=== PATIENT | female | born 1955 | race Caucasian/White ===

== ENCOUNTER 2018-05-04 03:36 | Inpatient (IN) | payer BC ==
[2018-05-04] MEDS ORDERED: Aspirin 81 mg Enteric Coated Tablet ONE (03:55)
[2018-05-04 04:09] LABS: #Basophils 0.1 thou/uL (0.0-0.2); #Eosinphils 0.2 thou/uL (0.0-0.7); #Lymphocytes 2.7 thou/uL (1.20-3.40); #Monocytes 0.5 thou/uL (0.11-0.59); #Neutrophils 5.8 thou/uL (1.40-6.50); %Basophils 0.9 % (0.0-1.0); %Eosinophils 2.3 % (0.0-10.0); %Lymphocytes 28.9 % (21.0-51.0); %Monocytes 5.3 % (0.0-10.0); %Neutrophils 62.6 % (42.0-75.0); Hemoglobin 11.6 g/dL (12.0-16.0); Mean Corpuscular HGB CONC 31.7 g/dL (32.0-36.0); Mean Corpuscular Hemoglobin 25.4 pg (27.0-31.0); Mean Corpuscular Volume 80.1 fL (78.0-98.0); Mean Platelet Volume 8.2 fL (7.4-10.4); Platelet Count 293 thou/uL (130-400); RBC Distribution Width 13.8 % (11.5-14.5); Red Blood Cell (RBC) Count 4.56 mill/uL (4.20-5.40); White Blood Cell (WBC) Count 9.2 thou/uL (4.8-10.8)
[2018-05-04] MEDS ORDERED: Magnesium 2 GM/NS 0.9% 50 ML 2 GM in Premix Bag 1 BAG IVPB SCH (04:15)
[2018-05-04 04:19] LABS: ALT (SGPT) 33 U/L (8-55); AST (SGOT) 42 U/L (5-34); Albumin 3.9 g/dL (3.4-4.8); Alkaline Phosphatase 77 U/L (40-150); Anion Gap 14 mmol/L (10-20); BUN (Urea Nitrogen) 18 mg/dL (9.8-20.1); Bilirubin, Total Less than 0.2 mg/dL (0.2-1.2); CK (CPK) 56 U/L (29-168); Calc. Creatinine Clearance 0 mL/min (70-130); Calcium 9.2 mg/dL (7.8-10.44); Carbon Dioxide 23 mmol/L (23-31); Chloride 102 mmol/L (98-107); Estimated GFR-MDRD 74; Globulin 2.6 g/dL (2.4-3.5); Glucose 152 mg/dL (80-115); Lipase 8 U/L (8-78); Potassium 3.8 mmol/L (3.5-5.1); Protein, Total 6.5 g/dL (6.0-8.3); Sodium 135 mmol/L (136-145)
[2018-05-04 04:23] LABS: CKMB 1.8 ng/mL (0-6.6); Troponin I Less than 0.010 ng/mL (< 0.028)
[2018-05-04 05:42] LABS: Bilirubin Negative (Negative); Blood, Urine Negative (Negative); Clarity CLEAR (Clear); Glucose, Urine (Dipstick) Negative (Negative); Leukocyte Small (Negative); Nitrite Negative (Negative); Protein, Urine (Dipstick) Negative (Neg-Trace); Specific Gravity, Urine 1.003 (1.002-1.036); Urobilinogen 0.2 mg/dL (0.2-1.0); pH, Urine 6.5 (5.0-9.0)
[2018-05-04 05:44] LABS: Bacteria/HPF 3+ HPF (None Seen); Hyaline Casts/LPF 0-3 HYALINE CAST LPF (0-3 Hyaline); Pathc Cast-AUWi Flag 0.43 (0-2.49); RBC/HPF None Seen HPF (0-3); Squamous Epithelial 0-3 HPF (0-3)
[2018-05-04] MEDS ORDERED: Ondansetron HCl/PF 4 MG/2 ML Vial IVP PRN (07:14)
[2018-05-04] MEDS ORDERED: Sodium Chloride 0.9% 1,000 ML IV SCH (07:14)
[2018-05-04] MEDS ORDERED: Ondansetron ODT 4 MG TAB SL PRN (07:14)
[2018-05-04 07:28] LABS: Troponin I 0.036 ng/mL (< 0.028)
--- NOTE | 2018-05-04 08:14 | RAD ---
AP CHEST: History: Chest pain Date: 05-04-18 FINDINGS: AP chest demonstrates some ectasia and calcification of the aorta. Pulmonary vascular congestion is s een. No evidence of effusions, pneumonia, or pneumothorax seen. IMPRESSION: Pulmonary vascular congestion, otherwise unremarkable AP view chest. POS: [facility]
--- NOTE | 2018-05-04 08:36 | CT ---
CTA OF THE THORAX UTILIZING IV CONTRAST AND 3D REFORMATTED IMAGING: Date: 05/04/18 INDICATION: Supraventricular tachycardia. Concern for pulmonary embolus. FINDINGS: No comparisons are available. No central or segmental pulmonary embolus is present. There are mild vascular calcifications involvin g the thoracic aorta. Heart and great vessels appear within normal limits. No enlarged lymph nodes are evident. There is a 4.0 mm pulmonary nodule within the medial right middle lobe on image 56 of series 3. There is a 7.0 mm pulmonary nodule within the left lower lobe anterolateral segment on image 86 of series 3. Visualized upper abdomen is within normal limits. There is a bony hemangioma within the left aspect o f T11 and within the anterior aspect of T7. The gallbladder is surgically absent. IMPRESSION: 1. No central or segmental pulmonary embolus demonstrated. 2. Pulmonary nodules. Follow-up CT evaluation in 6 months is recommended to document stability. 3. Mild vascular calcifications of the thoracic aorta. 4. Cholecystectomy. POS: [facility]
[2018-05-04 10:41] LABS: Troponin I 0.055 ng/mL (< 0.028)
[2018-05-04] MEDS ORDERED: PROPOFOL 200 MG/20 ML VIAL ONE (11:05)
[2018-05-04] MEDS ORDERED: PHENYLEPHRINE-NS 100 MCG/ML 10 ML SYRINGE ONE (11:05)
[2018-05-04 12:04] VITALS: BMI 42.6
[2018-05-04] MEDS ORDERED: ISOVUE-370 76%-LOCM 1 ML ONE (12:46)
[2018-05-04] MEDS ORDERED: Heparin 10,000 UNITS/1 ML VIAL ONE (14:07)
[2018-05-04] MEDS ORDERED: Lidocaine 1% (PF) 30 ML VIAL ONE (14:07)
[2018-05-04] MEDS ORDERED: Propofol 500 MG/50 ML VIAL ONE ×3 (15:17→16:25)
[2018-05-04] MEDS ORDERED: Phenylephrine HCL 10 MG/ML VIAL ONE (15:44)
[2018-05-04] MEDS ORDERED: Isoproterenol 0.2 MG/1 ML AMP ONE (15:58)
[2018-05-04] MEDS ORDERED: Fentanyl 100 MCG/2 ML VIAL ONE (16:26)
[2018-05-04] MEDS ORDERED: Acetaminophen 325 MG TAB PO PRN (16:50)
[2018-05-04] MEDS ORDERED: Acetaminophen 650 MG Suppository PR PRN (16:50)
[2018-05-04] MEDS: Gabapentin 300 MG CAP PO SCH (18:20)
[2018-05-04] MEDS: tiZANidine HCl 4 MG TAB PO SCH (18:20)
[2018-05-04] MEDS: oxyCODONE/Acetaminophen 5 mg/325 mg Tablet PO SCH (18:20)
--- NOTE | 2018-05-04 22:10 | OP ---
DATE OF PROCEDURE: 05/04/2018 ELECTROPHYSIOLOGY STUDY AND RADIOFREQUENCY ABLATION REPORT REFERRING PHYSICIANS: Valeriano Salguero MD and Suleiman Wen DO REASON FOR PROCEDURE: Ms. Harmon is a 63-year-old woman with history of longstanding palpitations since age 18. She had increasing frequency of episodes with multiple ER visits. She was told she had an SVT. Currently, she presented with 1:1 narrow complex tachycardia with short VA timing around 80 milliseconds requiring adenosine for termination. Here for EP study and ablation procedure. DESCRIPTION OF PROCEDURE: The patient received propofol by Anesthesia specialist for deep sedation. After adequate level of sedation achieved, the left and right femoral venous area was prepped, draped, and anesthetized using subcutaneous lidocaine. With ultrasound guidance, the left femoral vein was cannulated x2 and a 6 and 8-Turkish short sheaths were introduced and the right femoral veins x1 with an 8-Turkish sheath introduced. Through the left veins, a deca and an octapolar catheters were advanced to the right atrium, right ventricle, His bundle, and CS positions. Pacing, mapping, and recording were performed in each location and the following findings were noted. Baseline sinus cycle length is 785 milliseconds, CO 181, QRS 65, QT 384, AH 131 , HV 46 milliseconds. Sinus node recovery time is 1531, corrected sinus node recovery time is 731 milliseconds. AV Wenckebach cycle length was 340 milliseconds, retrograde Wenckebach cycle length was 380 milliseconds. Concentric retrograde VA conduction was seen. The AV jaqueline ERP was 600/220 milliseconds. Dual AV jaqueline physiology was clearly demonstrated. With burst atrial pacing, we were able to induce a 1:1 SVT with narrow QRS with a short VA timing less than 80 milliseconds. The burst overdrive ventricular pacing entering the tachycardia and at the end of the overdrive pacing, a VA response was seen suggestive of AV jaqueline reentry tachycardia. Following that, a [employer] SF ST catheter was advanced to the right atrium. Right atrial map was obtained delineating the His cloud, the CS os, and a slow pathway area. Multiple ablation points were placed in the slow pathway, total of 8 ablation, total duration of 2 minutes were delivered at 30 jones. Junctional beats were observed during the ablation. Following that, the AV Wenckebach cycle lengths were retested. Change in AV Wenckebach cycle lengths were noted increasing the AVWB at 360 milliseconds. The AV jaqueline ERP was also changed to 600/260 milliseconds. The burst atrial pacing did not re-induce her SVT. Cardiac silhouette did not change with the procedure of significance. The patient tolerated the procedure well. CONCLUSION: 1. Inducible AV jaqueline reentrant tachycardia. 2. Successful slow pathway ablation eliminating inducibility of AV node reentry tachycardia with residual slow pathway conduction still noted. 3. Isuprel administered and no inducibility of tachycardia was seen. 4. Prolonged sinus node recovery time suggestive of sinus node disease. PLAN: Continue routine postoperative monitoring. Monitor for Bradycardic symptoms. MTDD
[2018-05-05] MEDS: oxyCODONE/Acetaminophen 5 mg/325 mg Tablet PO SCH ×2 (00:11→08:20)
[2018-05-05] MEDS: tiZANidine HCl 4 MG TAB PO SCH ×2 (00:12→08:21)
[2018-05-05] MEDS: Gabapentin 300 MG CAP PO SCH ×2 (00:12→08:21)
--- NOTE | 2018-05-05 00:24 | CON ---
ELECTROPHYSIOLOGY CONSULTATION REPORT DATE OF CONSULTATION: 05/04/2018 REFERRING PHYSICIAN: Dr. Valeriano Salguero as well as Dr. Suleiman Wen. I am seeing Ms. Harmon at our [facility] as an electrophysiology foreign law consultant. Her problems are: 1. Supraventricular tachycardia. A. Narrow complex SVT on presentation with rates of 180 beats per minute with a short VA conduction about 120 milliseconds. B. Good response to adenosine. 2. No evidence of structural heart disease by normal LVEF on echocardiogram. 3. Risk factors including diabetes and obesity. ALLERGIES: TYLENOL, ALPRAZOLAM, HYDROCODONE, LATEX, MORPHINE, NIACIN, OXYBUTYNIN, OXYMORPHONE, PROPOXYPHENE, PROPRANOLOL, and SULFA. MEDICATIONS AT HOME: Included sertraline, oxycodone, lisinopril/ hydrochlorothiazide, tizanidine, insulin, gabapentin. SUBJECTIVE: Ms. Harmon is here with recurrent palpitations and states she had palpitations since age 18 and more recently episodes have become more frequent. She had been able to terminate some of the arrhythmias with bearing down, but now at this time, she could not and she came to the ER which terminated arrhythmia. A similar episode has happened in the past. She does not pass out. At this point, no chest pains, angina, . No fever, chills, or cough. No stroke-like symptoms. REVIEW OF SYSTEMS: Rest of 12-point system is otherwise unremarkable. PAST MEDICAL HISTORY: As above. SOCIAL HISTORY: Patient denies smoking, EtOH, or drug abuse. FAMILY HISTORY: Noncontributory. OBJECTIVE DATA: VITAL SIGNS: Blood pressure is 123/80, heart rate 88, respirations 20, temperature 97.9 degrees Fahrenheit. GENERAL: Alert and oriented woman, in no apparent distress. NECK: Supple. Jugular veins not distended. CHEST: Coarse without crackles. CARDIOVASCULAR: Heart sounds are regular to rate and rhythm. No murmur or gallop. ABDOMEN: Benign. Bowel sounds positive. EXTREMITIES: Lower extremity without edema, clubbing, or cyanosis. Pulses are adequate. NEUROLOGIC: Patient nonfocal. MUSCULOSKELETAL: No joint swelling or deformities. SKIN: Without rash. DATABASE: EKG as above currently sinus rhythm, no significant ST-T changes. Normal [place] interval. LABORATORY AND DIAGNOSTIC DATA: White count 9.2, hemoglobin 11.6, platelet count is 293,000. D-dimer is 0.98. Sodium 135, potassium 3.8, BUN is 18, creatinine 0.79, AST and ALT is 42 and 33, glucose 152. Troponin levels are 0.01, 0.036, 0.055. BNP is 17. CT of the chest shows pulmonary nodules, mild vascular calcifications. No evidence of pulmonary embolus. A 2D echo again reveals LVEF 55-60%, mild MR, trace TR, diastolic dysfunction. ASSESSMENT AND PLAN: Ms. Harmon is a pleasant 63-year-old woman with prior history of recurrent palpitations. The EKG and Tele strips are suggestive of AV reciprocating tachycardia, AVRT versus AVNRT. I discussed the mechanism of these arrhythmias as treatment options. She has taken diltiazem in the past, but prefers not to take it in the future. At this point, she would prefer to proceed with an ablation procedure. I detailed the procedure to her. She understands the chance of infection, bleeding, pneumothorax, tamponade, strokes , and recurrence AV block is also listed as a possible complication which could require pacing. She understands willing to proceed. We will schedule her for near date. Thank you again for allowing me to participate in care of this patient. JACQUES
[2018-05-05 05:11] LABS: #Basophils 0.1 thou/uL (0.0-0.2); #Eosinphils 0.2 thou/uL (0.0-0.7); #Lymphocytes 2.6 thou/uL (1.20-3.40); #Monocytes 0.6 thou/uL (0.11-0.59); #Neutrophils 5.2 thou/uL (1.40-6.50); %Basophils 0.7 % (0.0-1.0); %Eosinophils 2.1 % (0.0-10.0); %Lymphocytes 30.2 % (21.0-51.0); %Monocytes 6.3 % (0.0-10.0); %Neutrophils 60.6 % (42.0-75.0); Mean Corpuscular HGB CONC 31.1 g/dL (32.0-36.0); Mean Corpuscular Volume 80.3 fL (78.0-98.0); Mean Platelet Volume 8.3 fL (7.4-10.4); Platelet Count 274 thou/uL (130-400); RBC Distribution Width 13.5 % (11.5-14.5); Red Blood Cell (RBC) Count 4.39 mill/uL (4.20-5.40); White Blood Cell (WBC) Count 8.6 thou/uL (4.8-10.8)
[2018-05-05 05:17] LABS: Anion Gap 13 mmol/L (10-20); BUN (Urea Nitrogen) 9 mg/dL (9.8-20.1); Calc. Creatinine Clearance 144 mL/min (70-130); Calcium 9.3 mg/dL (7.8-10.44); Carbon Dioxide 25 mmol/L (23-31); Chloride 105 mmol/L (98-107); Estimated GFR-MDRD 83; Glucose 124 mg/dL (80-115); Potassium 4.1 mmol/L (3.5-5.1); Sodium 139 mmol/L (136-145)
[2018-05-05] MEDS ORDERED: Lisinopril/Hydrochlorothiazide 20/25 mg Tablet PO SCH (09:00)
[2018-05-05] MEDS ORDERED: Enoxaparin Sodium 40 MG/0.4 ML SYRINGE SC SCH (09:00)
[2018-05-05 12:10] VITALS: BP 131/85; TEMP 98.6
== END 2018-05-05 12:24 | disposition home or self-care (01) | DRG 274 ==
LOC: EDBD 03:36 → ERS 03:36 → 2SE 05:44 → OBSVTOIN 05:44
PROVIDERS: ADMIT Internal Medicine; ATTEND Internal Medicine
PROC: 02553ZZ Destruction of Atrial Septum, Percutaneous Approach (ICD-10-PCS; principal; 2018-05-04)
DX: I47.1 Supraventricular tachycardia (principal)
CPT/HCPCS: 36415; 36416; 71045; 71275; 76942; 80048; 80053; 81003; 81015; 82550; 82553; 83690; 83880; 84443; 84484; 85025; 85379; 87077; 87086; 87186; 90471; 90686; 93005; 93010; 93306; 93613; 93623; 93653; 94760; 96365; 96366; 96375; C1730; C1769; G0008; J1644; J1650; J2001; J2370; J2704; J3010; J3475

== ENCOUNTER 2019-01-10 15:30 | Emergency (ER) | payer BC ==
[2019-01-10] MEDS ORDERED: Acetaminophen 325 MG TAB ONE (16:15)
[2019-01-10] MEDS ORDERED: Ondansetron ODT 4 MG TAB ONE (16:15)
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
== END 2019-01-10 17:02 | disposition home or self-care (01) ==
LOC: ERS 15:30
DX: S16.1XXA Strain of muscle, fascia and tendon at neck level, initial encounter (principal); F17.210 Nicotine dependence, cigarettes, uncomplicated; Z79.899 Other long term (current) drug therapy; V43.52XA Car driver injured in collision with other type car in traffic accident, initial encounter
CPT/HCPCS: 72040; Q0162

== ENCOUNTER 2019-02-14 16:11 | Emergency (ER) | payer BC, SELFPAY ==
[~2019-02-14 16:11] MED LIST: ISOVUE-370 76%-LOCM 1 ML ONE
--- NOTE | 2019-02-14 16:52 | RAD ---
Portable frontal chest radiograph: 02/14/2019 COMPARISON: 05/04/2018 HISTORY: Syncope and collapse FINDINGS: Lungs are clear. There is mild perihilar increased linear interstitial density, stable Hear t and mediastinal contours appear within normal limits. IMPRESSION: No acute findings.
[2019-02-14 16:55] LABS: #Basophils 0.1 thou/uL (0.0-0.2); #Eosinphils 0.1 thou/uL (0.0-0.7); #Lymphocytes 3.5 thou/uL (1.20-3.40); #Monocytes 0.7 thou/uL (0.11-0.59); #Neutrophils 7.1 thou/uL (1.40-6.50); %Basophils 0.9 % (0.0-1.0); %Eosinophils 1.3 % (0.0-10.0); %Lymphocytes 30.2 % (21.0-51.0); %Monocytes 5.9 % (0.0-10.0); %Neutrophils 61.8 % (42.0-75.0); Hemoglobin 14.7 g/dL (12.0-16.0); Mean Corpuscular HGB CONC 31.5 g/dL (32.0-36.0); Mean Corpuscular Hemoglobin 26.8 pg (27.0-31.0); Mean Corpuscular Volume 85.3 fL (78.0-98.0); Mean Platelet Volume 9.6 fL (7.4-10.4); Platelet Count 161 thou/uL (130-400); RBC Distribution Width 13.9 % (11.5-14.5); Red Blood Cell (RBC) Count 5.48 mill/uL (4.20-5.40); White Blood Cell (WBC) Count 11.5 thou/uL (4.8-10.8)
[2019-02-14 17:17] LABS: ALT (SGPT) 8 U/L (8-55); AST (SGOT) 10 U/L (5-34); Albumin 3.4 g/dL (3.4-4.8); Alkaline Phosphatase 43 U/L (40-150); Anion Gap 12 mmol/L (10-20); BUN (Urea Nitrogen) 11 mg/dL (9.8-20.1); Bilirubin, Total 0.4 mg/dL (0.2-1.2); CK (CPK) 42 U/L (29-168); Calc. Creatinine Clearance 0 mL/min (70-130); Calcium 8.6 mg/dL (7.8-10.44); Carbon Dioxide 25 mmol/L (23-31); Chloride 105 mmol/L (98-107); Estimated GFR-MDRD 81; Globulin 1.6 g/dL (2.4-3.5); Glucose 132 mg/dL (80-115); Lipase Less than 4 U/L (8-78); Potassium 3.1 mmol/L (3.5-5.1); Sodium 139 mmol/L (136-145)
--- NOTE | 2019-02-14 17:56 | CT ---
CT ANGIOGRAM CHEST WITH CONTRAST: 02/14/19 HISTORY: Weakness. Syncope. COMPARISON: CT angiogram chest 05/04/18. FINDINGS: CT angiogram chest performed after the intravenous administration of contrast. 3D rendering is provid ed. No proximal segmental pulmonary arterial filling defect. Pulmonary trunk size is normal. The transver se aorta is normal. No pericardial effusion. Heart size upper limits of normal. Prior cholecystectomy. Incidental note is made of a small splenule. Lungs are clear. No pneumothorax. No effusion. Similar appearance of a pulmonary nodule in the right middle lobe measuring less than 4 mm. There is subtle mosaic attenuation of the lung parenchyma. IMPRESSION: 1. No proximal segmental pulmonary arterial filling defect. 2. Mild mosaic attenuation of the lungs with mild dilatation of the pulmonary trunk can be seen with pulmonary hypertension. No significant bronchiectasis to suggest small airway disease. 3. Unchanged peripheral pleural based nodule superior segment right lower lobe as well as right middle lobe. These are likely benign in nature. POS: [facility]
[2019-02-14] MEDS ORDERED: Aspirin 325 MG TAB ONE (18:42)
--- NOTE | 2019-02-18 16:21 | EKG ---
Test Reason : Blood Pressure : / mmHG Vent. Rate : 082 BPM Atrial Rate : 082 BPM P-R Int : 194 ms QRS Dur : 086 ms QT Int : 418 ms P-R-T Axes : 069 -19 053 degrees QTc Int : 488 ms Normal sinus rhythm Possible Left atrial enlargement Low voltage QRS Septal infarct , age undetermined Possible Inferior infarct , age undetermined Abnormal ECG Confirmed by ELIEZER MORALES, CHAYO ([id number]), assistant film editor LEIDY ANDREA ([id number]) on 02/18/2019 4:21:28 PM Referred By: Confirmed By:CHAYO MARTINS MD
== END 2019-02-14 19:55 | disposition left against medical advice (07) ==
LOC: ERS 16:11
DX: I95.89 Other hypotension (principal); R55 Syncope and collapse; I47.1 Supraventricular tachycardia; I49.9 Cardiac arrhythmia, unspecified; F17.210 Nicotine dependence, cigarettes, uncomplicated
CPT/HCPCS: 36415; 36416; 71045; 71275; 80053; 82550; 83605; 83690; 83880; 84484; 85025; 85379; 87040; 93005; Q9966

== ENCOUNTER 2019-07-21 17:09 | Emergency (ER) | payer MEDICARE, SELFPAY ==
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
[2019-07-21] MEDS ORDERED: oxyCODONE/Acetaminophen 5 mg/325 mg Tablet PO SCH (18:30)
== END 2019-07-21 21:27 | disposition home or self-care (01) ==
LOC: ERS 17:09
DX: S42.201A Unspecified fracture of upper end of right humerus, initial encounter for closed fracture (principal); F17.210 Nicotine dependence, cigarettes, uncomplicated

== ENCOUNTER 2019-09-25 11:41 | Outpatient (CLI) | payer MEDICARE ==
--- NOTE | 2019-09-25 13:02 | RAD ---
XR Lumbar Spine Min 4 View: 09/25/2019 12:00 AM Indication: History of postlaminectomy syndrome COMPARISON: None FINDINGS: Fracture: There is postprocedural change of a posterior lateral interbody fusion from L3 through S1. There are intervertebral disc cage is seen at L3-4, L4-5 and L5-S1. There are laminectomies at L4 and L5 Alignment: There is grade 1 anterolisthesis of L5 on S1 and L4 and L5 . There is mild retrolisthesis of L2 on L3 that is accentuated with extension but reduces with neutral and flexion positioning. Degenerative Change: There is mild multilevel spondylosis of the lumbar spine Bone Mineralization:Normal Soft tissues: No acute abnormality. IMPRESSION: [id number] spondylosis of the lumbar spine with posterior lateral spinal fusion ext ending from L3 through S1. There is mild abnormal translational motion at L2-3 as above.
== END 2019-09-25 11:42 | disposition home or self-care (01) ==
LOC: BICRAD 11:41
PROVIDERS: ATTEND Specialist
DX: M96.1 Postlaminectomy syndrome, not elsewhere classified (principal); M47.816 Spondylosis without myelopathy or radiculopathy, lumbar region; R93.7 Abnormal findings on diagnostic imaging of other parts of musculoskeletal system; Z98.1 Arthrodesis status
CPT/HCPCS: 72110

== ENCOUNTER 2020-01-04 08:06 | Day surgery (SDC) | payer MEDICARE ==
[2020-01-04 08:51] VITALS: BMI 36.0
--- NOTE | 2020-01-04 11:01 | CT ---
CT cervical spine with contrast: (CT cervical myelogram) 01/04/2020 HISTORY: 64-year-old female with cervicalgia and lateral cervical radiculopathy. FINDINGS: Vertebral body heights are maintained. Reversal of curvature, kyphosis. No Chiari I malformation. C1-2: Essentially normal. C2-3: Essentially normal. C3-4: Mild bilateral facet DJD. Disc space maintained. Minimal anterolisthesis of C3 on C4. No high-g rade central spinal canal stenosis or neural foraminal stenosis. Tiny uncinate process osteophytes bilaterally. C4-5: Severe disc space narrowing, endplate sclerosis, vacuum disc phenomenon, and central and bilate ral paracentral disc-osteophyte complex that indents and posteriorly displaces the spinal cord, causing moderate central spinal canal stenosis. Small bilateral uncinate process osteophytes. Mild bi lateral neural foraminal stenosis. Mild bilateral facet DJD. C5-6: Severe disc space narrowing. Mild vacuum disc phenomenon. Left paracentral focal disc-osteophyt e complex indents and posteriorly displaces spinal cord. Moderate to severe central spinal canal stenosis. Moderate size bilateral uncinate process osteophytes cause moderate bilateral neural forami nal stenosis, right worse than left. No high-grade facet DJD. C6-7: Moderate to severe disc space narrowing. Endplate sclerosis. No high-grade facet DJD. Broad-bas ed disc-osteophyte complex abuts the ventral surface of spinal cord. Somewhat severe central spinal canal stenosis. Moderately large bilateral uncinate process osteophytes cause moderate-severe bilater al neural foraminal stenosis. C7-T1: Mild disc space narrowing. No high-grade facet DJD. No neural foraminal stenosis. No high-grad e central spinal canal stenosis. IMPRESSION: 1.) Cervical spondylosis with high-grade degenerative disc disease, and significant central spinal ca nal stenosis, at C4-5, C5-6, and C6-7. 2.) Bilateral neural foraminal stenosis at C5-6 and C6-7.
--- NOTE | 2020-01-04 11:32 | CT ---
CT lumbar spine with contrast: (CT lumbar myelogram) 01/04/2020 HISTORY: 64-year-old female with low back pain, neurogenic claudication, and bilateral lumbar radiculopathy. Dr. Dean sent Dr. Leach notification of the nodule within the thecal sac by [place] text at 11:23 AM 01/04/2020, and Dr. Leach then acknowledged text at 11:26 AM 01/04/2020. COMPARISON: None FINDINGS: Cholecystectomy clips. 2 cm low-attenuation lesion at anterolateral aspect of right renal mid-lower p ole, apparently cystic, but incompletely evaluated There are 5 lumbar-type vertebrae. Vertebral body heights are maintained. No scoliosis. Conus medulla ris terminates at mid L1. T11-12: Normal. T12-L1: Within the right side of the thecal sac, in the subarachnoid space, adjacent to right-sided c auda equina nerve roots, there is a small, approximately 0.2 x 0.2 x 0.3 cm round noncalcified mass. (Sagittal image 47 of 109, series 400; coronal image 41 of 79, series 401; axial image 20 of 10 8, series 3). Disc space maintained. No central or neural foraminal stenosis. L1-2: Minimal disc bulge. Disc space maintained. Mild bilateral neural foraminal stenosis. No central stenosis. Mild bilateral facet DJD. L2-3: Disc space maintained. Moderate facet DJD and moderately severe ligamentum flavum thickening. M ild disc bulge. Moderate central spinal canal stenosis. Moderate bilateral neural foraminal stenosis. L3-4: Moderately large metallic interbody cage, and other graft material.. No osseous bridges between the endplates. Bilateral pedicle screws at L3 and L4 with no signs of loosening of hardware. Midline laminectomy defect. Generous caliber of thecal sac. Mild to moderate bilateral neural foramin al stenosis. L4-5: Similar moderately large metallic interbody cage, and other graft material. No osseous bridges between the endplates. Moderate narrowing of disc space. Laminectomy defect results in generous caliber of thecal sac. Mild grade 1 anterolisthesis of L4 on L5. Mild bilateral neural foraminal sten osis. Bilateral pedicle screws at L4 and L5. No signs of hardware loosening. L5-S1: Moderately large metallic interbody cage. Endplate irregularities. Vacuum disc phenomenon. Mod erate disc space narrowing. Grade 1 anterolisthesis of L5 on S1. Bilateral pedicle screws at L5 and S1. There is osseous lucency around the bilateral S1 screws. Wide decompressive laminectomy defect. G enerous caliber of thecal sac. Moderate bilateral neural foraminal stenosis. Bilateral posterior element onlay bone graft fusion with successful ankylosis from L3 through L5. The re may not be fusion with S1. IMPRESSION: 1.) Tiny 3 mm nodular mass in the extra medullary, intradural space, within the spinal canal, at T12- L1, consistent with tiny neoplasm. Possibilities include tiny nerve sheath tumor versus drop metastasis. Consider MRIs of the brain, cervical spine, and thoracic spine, with and without contrast . MRI lumbar spine with and without contrast should also be considered, but that study may be significantly limited because of the presence of hardware. Because all of these studies would require long time in the MRI scanner, they should be divided among 2 or 3 days. 2) status post wide laminectomies and posterior lumbar interbody fusion at L3-4-5-S1. 3) hardware loosening of the bilateral S1 pedicle screws. 4) posterior element onlay bone graft fusion shows successful ankylosis at L3-4-5, but not between L5 and S1. No ankylosis across the disc spaces between the endplates at any level. 5) moderate central spinal canal stenosis and moderate bilateral neural foraminal stenosis at L2-3.
[2020-01-04 13:48] VITALS: BP 128/89; TEMP 98.3
--- NOTE | 2020-01-04 14:24 | CT ---
MYELOGRAM LUMBAR MYELOGRAM CERVICAL CT-GUIDED LUMBAR PUNCTURE: DATE: 01/04/2020 HISTORY: 64-year-old female with low back pain, cervicalgia, neurogenic claudication, bilateral lumbar radicul opathy, and bilateral cervical radiculopathy. TECHNIQUE: Signed informed consent obtained. Patient placed prone on CT table. Skin of lower back prepared and d raped in usual sterile fashion. 25-gauge needle used to apply buffered lidocaine superficially and deeply. Level selected:L4-5. Approach:midline. 22-gauge spinal needle advanced into spinal canal under step CT guidance. Upon return of clear CSF, 10 mL Isovue [id number] media was injected into the intrathecal space. Spinal needle was removed. Patient tolerated procedure well. No complications. Patient was then placed on gravity, and tilted Trendelenburg. Patient was then placed back on CT table supine, and CT scans of the C-spine and lumbar spine were ob tained. FINDINGS: Bilateral pedicle screws at all levels from L3 through S1, with vertical interlocking rods. Midline l aminectomy defects at several levels. Large metallic interbody cages at L3-4, L4-5, and L5-S1. Step CT images demonstrate spinal needle at midline with distal tip at the posterior aspect of the sp inal canal through one of the large laminectomy defects. IMPRESSION: Successful CT-guided lumbar and cervical myelogram. See separate report of subsequent CT lumbar myelogram.
== END 2020-01-04 10:40 | disposition home or self-care (01) ==
LOC: RAD 08:06
PROVIDERS: ATTEND Neurological Surgery
PROC: B02B1ZZ Computerized Tomography (CT Scan) of Spinal Cord using Low Osmolar Contrast (ICD-10-PCS; principal; 2020-01-04)
DX: M48.062 Spinal stenosis, lumbar region with neurogenic claudication (principal); M47.22 Other spondylosis with radiculopathy, cervical region; M50.121 Cervical disc disorder at C4-C5 level with radiculopathy; M48.02 Spinal stenosis, cervical region; G95.89 Other specified diseases of spinal cord; I48.91 Unspecified atrial fibrillation; I10 Essential (primary) hypertension; F17.210 Nicotine dependence, cigarettes, uncomplicated; Z79.899 Other long term (current) drug therapy; Z88.2 Allergy status to sulfonamides; Z88.5 Allergy status to narcotic agent; Z88.6 Allergy status to analgesic agent; Z88.8 Allergy status to other drugs, medicaments and biological substances; Z91.040 Latex allergy status; Z98.1 Arthrodesis status
CPT/HCPCS: 72126; 72132; 77002

== ENCOUNTER 2020-01-05 15:40 | Emergency (ER) | payer MEDICARE ==
[2020-01-05] MEDS ORDERED: Ketorolac Tromethamine 30 MG/ML VIAL ONE (16:52)
--- NOTE | 2020-01-05 17:35 | RAD ---
THREE VIEWS OF THE LUMBAR SPINE: 01/05/20 HISTORY: Low back pain, recent myelogram. COMPARISON: 09/25/19. FINDINGS: There is multilevel posterior fusion hardware including bilateral L3, L4, L5 and S1 pedicle screws as well as vertically oriented interlocking rods. Stable intervertebral disc devices noted at L3-4, L4- 5 and L5-S1. There is atherosclerotic calcification of the abdominal aorta. There is prominent degenerative change at the lumbosacral junction. There is multilevel lower lumbar spine facet hypertrophy. No acute osseous abnormality. IMPRESSION: Stable postoperative and degenerative changes of the lumbar spine. POS: [facility]
[2020-01-05] MEDS ORDERED: Dexamethasone 10 MG/ML VIAL ONE (19:09)
== END 2020-01-05 19:36 | disposition home or self-care (01) ==
LOC: ERS 15:40
DX: M54.5 Low back pain (principal); I47.1 Supraventricular tachycardia; F17.210 Nicotine dependence, cigarettes, uncomplicated; Z79.899 Other long term (current) drug therapy
CPT/HCPCS: 72100; 96372; J0500; J1100; J1885

== ENCOUNTER 2021-05-21 20:13 | Inpatient (IN) | payer MEDICARE ==
[~2021-05-21 20:13] MED LIST changes: -ISOVUE-370 76%-LOCM 1 ML ONE; +Iopamidol-370 76% 500 ML 1 ML ONE
[2021-05-21 21:01] LABS: #Lymphocytes 0.6 thou/uL (1.20-3.40); #Monocytes 0.5 thou/uL (0.11-0.59); #Neutrophils 3.5 thou/uL (1.40-6.50); %Basophils 0.8 % (0.0-1.0); %Eosinophils 0.2 % (0.0-10.0); %Lymphocytes 13.5 % (21.0-51.0); %Monocytes 9.9 % (0.0-10.0); %Neutrophils 75.7 % (42.0-75.0); Hemoglobin 14.7 g/dL (12.0-16.0); Mean Corpuscular HGB CONC 33.3 g/dL (32.0-36.0); Mean Corpuscular Volume 84.2 fL (78.0-98.0); Mean Platelet Volume 8.6 fL (7.4-10.4); Platelet Count 144 thou/uL (130-400); RBC Distribution Width 13.6 % (11.5-14.5); Red Blood Cell (RBC) Count 5.26 mill/uL (4.20-5.40); White Blood Cell (WBC) Count 4.6 thou/uL (4.8-10.8)
[2021-05-21 21:28] LABS: ALT (SGPT) 25 U/L (8-55); AST (SGOT) 37 U/L (5-34); Albumin 3.9 g/dL (3.4-4.8); Alkaline Phosphatase 50 U/L (40-110); Anion Gap 15 mmol/L (10-20); BUN (Urea Nitrogen) 12 mg/dL (9.8-20.1); Bilirubin, Total 0.2 mg/dL (0.2-1.2); Calc. Creatinine Clearance 0 mL/min (70-130); Calcium 8.6 mg/dL (7.8-10.44); Carbon Dioxide 21 mmol/L (23-31); Chloride 96 mmol/L (98-107); Globulin 2.4 g/dL (2.4-3.5); Glucose 152 mg/dL (80-115); Lipase Less than 4 U/L (8-78); Potassium 3.8 mmol/L (3.5-5.1); Protein, Total 6.3 g/dL (5.8-8.1); Sodium 128 mmol/L (136-145)
[2021-05-21 22:44] LABS: SARS-CoV-2 NAA Rapid Test DETECTED (NotDetected)
[2021-05-22] MEDS ORDERED: Ondansetron ODT 4 MG TAB SL PRN (00:45)
[2021-05-22] MEDS ORDERED: Ondansetron PF 4 MG/2 ML Vial IVP PRN ×2 (00:45→00:52)
[2021-05-22] MEDS ORDERED: Acetaminophen 325 MG TAB PO PRN (00:45)
[2021-05-22 00:55] VITALS: BMI 40.6
[2021-05-22] MEDS ORDERED: Loperamide HCl 1 MG/7.5 ML UDCUP PO PRN (07:20)
[2021-05-22 08:16] LABS: #Lymphocytes 0.7 thou/uL (1.20-3.40); #Monocytes 0.4 thou/uL (0.11-0.59); %Basophils 1.5 % (0.0-1.0); %Eosinophils 0.2 % (0.0-10.0); %Lymphocytes 21.9 % (21.0-51.0); %Neutrophils 64.4 % (42.0-75.0); Hemoglobin 14.2 g/dL (12.0-16.0); Mean Corpuscular HGB CONC 32.7 g/dL (32.0-36.0); Mean Corpuscular Hemoglobin 27.6 pg (27.0-31.0); Mean Corpuscular Volume 84.3 fL (78.0-98.0); Mean Platelet Volume 8.9 fL (7.4-10.4); Platelet Count 131 thou/uL (130-400); RBC Distribution Width 13.7 % (11.5-14.5); Red Blood Cell (RBC) Count 5.15 mill/uL (4.20-5.40); White Blood Cell (WBC) Count 3.2 thou/uL (4.8-10.8)
[2021-05-22] MEDS: Famotidine 20 MG TAB PO SCH ×2 (08:24→20:23)
[2021-05-22] MEDS: Ascorbic Acid 500 mg Chewable Tablet PO SCH (08:24)
[2021-05-22] MEDS: Zinc Sulfate 220 MG CAP PO SCH (08:25)
[2021-05-22] MEDS: Enoxaparin Sodium 40 MG/0.4 ML SYRINGE SC SCH ×2 (08:25→20:22)
[2021-05-22] MEDS: Dexamethasone 10 MG/ML VIAL SLOW IVP SCH (08:25)
[2021-05-22 08:31] LABS: Anion Gap 15 mmol/L (10-20); BUN (Urea Nitrogen) 11 mg/dL (9.8-20.1); Calc. Creatinine Clearance 154 mL/min (70-130); Calcium 8.3 mg/dL (7.8-10.44); Carbon Dioxide 23 mmol/L (23-31); Chloride 97 mmol/L (98-107); Glucose 144 mg/dL (80-115); Potassium 3.2 mmol/L (3.5-5.1); Sodium 132 mmol/L (136-145)
[2021-05-22] MEDS ORDERED: Potassium Chloride 20 MEQ TAB PO SCH (17:30)
[2021-05-23 06:26] LABS: Hemoglobin 13.7 g/dL (12.0-16.0); Mean Corpuscular HGB CONC 33.9 g/dL (32.0-36.0); Mean Corpuscular Hemoglobin 28.8 pg (27.0-31.0); Mean Corpuscular Volume 84.8 fL (78.0-98.0); Platelet Count 137 thou/uL (130-400); RBC Distribution Width 13.5 % (11.5-14.5); Red Blood Cell (RBC) Count 4.76 mill/uL (4.20-5.40); White Blood Cell (WBC) Count 3.8 thou/uL (4.8-10.8)
[2021-05-23 06:34] LABS: Anion Gap 16 mmol/L (10-20); BUN (Urea Nitrogen) 14 mg/dL (9.8-20.1); Calc. Creatinine Clearance 137 mL/min (70-130); Calcium 8.6 mg/dL (7.8-10.44); Carbon Dioxide 24 mmol/L (23-31); Chloride 96 mmol/L (98-107); Glucose 105 mg/dL (80-115); Potassium 3.7 mmol/L (3.5-5.1); Sodium 132 mmol/L (136-145)
[2021-05-23 06:37] LABS: Magnesium 1.7 mg/dL (1.6-2.6)
[2021-05-23] MEDS: Zinc Sulfate 220 MG CAP PO SCH (08:15)
[2021-05-23] MEDS: Ascorbic Acid 500 mg Chewable Tablet PO SCH (08:16)
[2021-05-23] MEDS: Enoxaparin Sodium 40 MG/0.4 ML SYRINGE SC SCH (08:16)
[2021-05-23] MEDS: Famotidine 20 MG TAB PO SCH (08:16)
[2021-05-23] MEDS: Dexamethasone 10 MG/ML VIAL SLOW IVP SCH (08:16)
[2021-05-23 10:18] LABS: Band 11 % (5-11); Lymphocytes 38 % (21-51); MDiff Complete? YES; Monocytes 4 % (0-10); Neutrophil 47 % (42-75); RBC Morphology Normal
[2021-05-23] MEDS ORDERED: hydrALAZINE 25 MG TAB PO PRN (17:37)
[2021-05-23 17:53] VITALS: BP 121/74; TEMP 98
== END 2021-05-23 17:59 | disposition home or self-care (01) | DRG 177 ==
LOC: ERS 20:13 → 2SW 23:41
PROVIDERS: ADMIT Internal Medicine; ATTEND Internal Medicine
PROC: 8E0ZXY6 Isolation (ICD-10-PCS; principal; 2021-05-21)
DX: U07.1 COVID-19 (principal); J12.82 Pneumonia due to coronavirus disease 2019; J96.01 Acute respiratory failure with hypoxia; G89.29 Other chronic pain; E87.1 Hypo-osmolality and hyponatremia; M54.9 Dorsalgia, unspecified; F17.210 Nicotine dependence, cigarettes, uncomplicated; I10 Essential (primary) hypertension; Z90.49 Acquired absence of other specified parts of digestive tract; Z90.710 Acquired absence of both cervix and uterus; Z91.040 Latex allergy status; Z88.8 Allergy status to other drugs, medicaments and biological substances; Z91.018 Allergy to other foods; Z79.899 Other long term (current) drug therapy
CPT/HCPCS: 36415; 71045; 71275; 80048; 80053; 83690; 83735; 83880; 83930; 83935; 84300; 84484; 85025; 85379; 86140; 93005; J1100; J1650; Q9967; U0002

== ENCOUNTER 2021-05-24 23:50 | Inpatient (IN) | payer MEDICARE ==
[2021-05-25 00:32] LABS: #Basophils 0.1 thou/uL (0.0-0.2); #Lymphocytes 0.7 thou/uL (1.20-3.40); #Monocytes 0.3 thou/uL (0.11-0.59); #Neutrophils 7.9 thou/uL (1.40-6.50); %Basophils 1.2 % (0.0-1.0); %Eosinophils 0.2 % (0.0-10.0); %Lymphocytes 7.7 % (21.0-51.0); %Monocytes 3.7 % (0.0-10.0); %Neutrophils 87.3 % (42.0-75.0); Hemoglobin 15.6 g/dL (12.0-16.0); Mean Corpuscular HGB CONC 33.8 g/dL (32.0-36.0); Mean Corpuscular Volume 85.8 fL (78.0-98.0); Mean Platelet Volume 8.4 fL (7.4-10.4); Platelet Count 179 thou/uL (130-400); RBC Distribution Width 13.8 % (11.5-14.5); Red Blood Cell (RBC) Count 5.37 mill/uL (4.20-5.40); White Blood Cell (WBC) Count 9.1 thou/uL (4.8-10.8)
[2021-05-25] MEDS ORDERED: Lorazepam 2 MG/ML VIAL ONE (00:43)
[2021-05-25 00:45] LABS: ALT (SGPT) 23 U/L (8-55); AST (SGOT) 51 U/L (5-34); Albumin 3.7 g/dL (3.4-4.8); Alkaline Phosphatase 56 U/L (40-110); Anion Gap 24 mmol/L (10-20); BUN (Urea Nitrogen) 15 mg/dL (9.8-20.1); Bilirubin, Total 0.3 mg/dL (0.2-1.2); Calc. Creatinine Clearance 0 mL/min (70-130); Calcium 8.5 mg/dL (7.8-10.44); Carbon Dioxide 17 mmol/L (23-31); Chloride 95 mmol/L (98-107); Globulin 2.5 g/dL (2.4-3.5); Glucose 175 mg/dL (80-115); Magnesium 1.6 mg/dL (1.6-2.6); Potassium 4.4 mmol/L (3.5-5.1); Protein, Total 6.2 g/dL (5.8-8.1); Sodium 132 mmol/L (136-145)
[2021-05-25] MEDS ORDERED: Dexamethasone 10 MG/ML VIAL ONE ×2 (01:04→09:04)
[2021-05-25] MEDS ORDERED: Fentanyl 100 MCG/2 ML VIAL ONE (01:14)
[2021-05-25] MEDS ORDERED: Ondansetron ODT 4 MG TAB PO PRN (03:08)
[2021-05-25] MEDS ORDERED: Acetaminophen 650 MG Suppository PR PRN (03:08)
[2021-05-25] MEDS ORDERED: Ondansetron PF 4 MG/2 ML Vial IVP PRN (03:08)
[2021-05-25] MEDS ORDERED: Acetaminophen 325 MG TAB PO PRN (03:08)
[2021-05-25 04:27] VITALS: BMI 37.5
[2021-05-25 04:32] VITALS: TEMP 98.7
[2021-05-25 05:29] LABS: #Lymphocytes 0.9 thou/uL (1.20-3.40); #Monocytes 0.3 thou/uL (0.11-0.59); #Neutrophils 7.7 thou/uL (1.40-6.50); %Basophils 0.1 % (0.0-1.0); %Eosinophils 0.1 % (0.0-10.0); %Lymphocytes 9.9 % (21.0-51.0); %Monocytes 3.1 % (0.0-10.0); %Neutrophils 86.8 % (42.0-75.0); Hemoglobin 15.3 g/dL (12.0-16.0); Mean Corpuscular HGB CONC 34.2 g/dL (32.0-36.0); Mean Corpuscular Volume 84.8 fL (78.0-98.0); Mean Platelet Volume 8.2 fL (7.4-10.4); Platelet Count 177 thou/uL (130-400); RBC Distribution Width 13.9 % (11.5-14.5); Red Blood Cell (RBC) Count 5.28 mill/uL (4.20-5.40); White Blood Cell (WBC) Count 8.9 thou/uL (4.8-10.8)
[2021-05-25 05:47] LABS: Anion Gap 20 mmol/L (10-20); BUN (Urea Nitrogen) 13 mg/dL (9.8-20.1); Calc. Creatinine Clearance 120 mL/min (70-130); Carbon Dioxide 20 mmol/L (23-31); Chloride 97 mmol/L (98-107); Glucose 172 mg/dL (80-115); Potassium 4.6 mmol/L (3.5-5.1); Sodium 132 mmol/L (136-145)
[2021-05-25 05:54] LABS: Lactic Acid 2.2 mmol/L (0.5-2.2)
[2021-05-25] MEDS ORDERED: Furosemide 40 MG/4 ML VIAL ONE (08:18)
[2021-05-25 08:33] LABS: Actual Bicarbonate (HCO3a) 24.1 mEq/L (22-28); Analyzer IN Cardio ER; Base Excess (BEa) 0.4 mEq/L (-2.0 to +3.0); CO2 Tension 36.2 mmHg (35.0-45.0); Calcium, Ionized (arterial) 1.12 mmol/L (1.12-1.30); Carboxyhemoglobin (COHb) 0.5 gm% (0.0-3.0); Hemoglobin (Hb) 14.9 g/dL (12.0-16.0); O2 Tension (PaO2), arterial 65.5 mmHg (> 80.0); Potassium - ABG Lab 4.17 mmol/L (3.70-5.30); pH, Arterial 7.44 (7.35-7.45)
[2021-05-25 08:38] LABS: Puncture Site RRA
[2021-05-25] MEDS ORDERED: Furosemide 40 MG/4 ML VIAL SLOW IVP SCH (08:45)
[2021-05-25 08:57] VITALS: BP 133/107
[2021-05-25] MEDS ORDERED: Dexamethasone 10 MG/ML VIAL SLOW IVP SCH (09:00)
[2021-05-25] MEDS ORDERED: FLU VACC QS2021-22(65YR UP)/PF 240 MCG/0.7 ML SYRINGE IM ONE (09:00)
[2021-05-25] MEDS ORDERED: Pantoprazole 40 MG VIAL IVP SCH (09:00)
[2021-05-25] MEDS ORDERED: Enoxaparin Sodium 40 MG/0.4 ML SYRINGE SC SCH (09:00)
[2021-05-25] MEDS ORDERED: Ascorbic Acid 500 mg Chewable Tablet PO SCH (09:00)
[2021-05-25] MEDS ORDERED: Zinc Sulfate 220 MG CAP PO SCH (09:00)
[2021-05-25] MEDS ORDERED: Cholecalciferol (Vitamin D3) 400 UNITS TAB PO SCH (09:00)
[2021-05-25] MEDS ORDERED: Enoxaparin Sodium 40 MG/0.4 ML SYRINGE ONE (09:04)
[2021-05-25] MEDS ORDERED: Pantoprazole 40 MG VIAL ONE (09:05)
[2021-05-25 09:26] LABS: Legionella Urinary Ag Negative (Negative); Strep pneumo Urine Ag NEGATIVE (NEGATIVE)
[2021-05-25] MEDS ORDERED: BARICITINIB 2 MG TAB PO SCH (10:15)
[2021-05-25] MEDS ORDERED: Iopamidol-370 76% 500 ML 1 ML ONE (10:38)
[2021-05-26] MEDS ORDERED: BARICITINIB 2 MG TAB PO SCH (09:00)
[2021-06-01] MEDS ORDERED: Albuterol Sulfate 1.25 MG/3 ML NEB ONE (04:30)
== END 2021-05-25 10:06 | disposition short-term general hospital (02) | DRG 177 ==
LOC: ERS 23:50 → ERHOLD 05-25 02:37
PROVIDERS: ADMIT Student in an Organized Health Care Education/Training Program; ATTEND Student in an Organized Health Care Education/Training Program
PROC: 5A09357 Assistance with Respiratory Ventilation, Less than 24 Consecutive Hours, Continuous Positive Airway Pressure (ICD-10-PCS; principal; 2021-05-25)
PROC: 3E0333Z Introduction of Anti-inflammatory into Peripheral Vein, Percutaneous Approach (ICD-10-PCS; 2021-05-25)
PROC: 8E0ZXY6 Isolation (ICD-10-PCS; 2021-05-25)
DX: U07.1 COVID-19 (principal); J96.01 Acute respiratory failure with hypoxia; J12.82 Pneumonia due to coronavirus disease 2019; F17.210 Nicotine dependence, cigarettes, uncomplicated; E66.9 Obesity, unspecified; Z98.890 Other specified postprocedural states; Z90.49 Acquired absence of other specified parts of digestive tract; Z90.710 Acquired absence of both cervix and uterus; Z90.89 Acquired absence of other organs; Z88.5 Allergy status to narcotic agent; Z88.2 Allergy status to sulfonamides; Z88.8 Allergy status to other drugs, medicaments and biological substances; Z88.6 Allergy status to analgesic agent; Z91.040 Latex allergy status; Z79.899 Other long term (current) drug therapy; Z79.52 Long term (current) use of systemic steroids; Z68.37 Body mass index [BMI] 37.0-37.9, adult
CPT/HCPCS: 36415; 36600; 71045; 71275; 80053; 82805; 83605; 83735; 83880; 84145; 84484; 85025; 85379; 86140; 87040; 87449; 87899; 93005; 94660; C9113; J1100; J1650; J1940; J1956; J2060; J3010; Q9967

== ENCOUNTER 2021-12-26 12:38 | Outpatient (CLI) | payer MEDICARE | END 2021-12-26 12:39 | disposition home or self-care (01) | LOC: BICULT 12:38 | PROVIDERS: ATTEND Internal Medicine Nephrology | DX: I12.9 Hypertensive chronic kidney disease with stage 1 through stage 4 chronic kidney disease, or unspecified chronic kidney disease (principal); N18.30 Chronic kidney disease, stage 3 unspecified; N28.1 Cyst of kidney, acquired | CPT/HCPCS: 76770; 93975 ==

== ENCOUNTER 2022-10-15 12:38 | Outpatient (CLI) | payer OTHER | END 2022-10-15 12:39 | disposition home or self-care (01) | LOC: BICMAMMO 12:38 | PROVIDERS: ATTEND Family Medicine | DX: Z12.31 Encounter for screening mammogram for malignant neoplasm of breast (principal); R92.1 Mammographic calcification found on diagnostic imaging of breast; Z91.89 Other specified personal risk factors, not elsewhere classified | CPT/HCPCS: 77063; 77067 ==

== ENCOUNTER 2022-11-11 10:53 | Outpatient (CLI) | payer OTHER | END 2022-11-11 10:54 | disposition home or self-care (01) | LOC: RAD 10:53 | PROVIDERS: ATTEND Internal Medicine | DX: R06.09 Other forms of dyspnea (principal); R91.8 Other nonspecific abnormal finding of lung field; T84.028A Dislocation of other internal joint prosthesis, initial encounter | CPT/HCPCS: 71046 ==

== ENCOUNTER 2022-11-28 23:43 | Observation (INO) | payer MEDICARE, OTHER ==
[~2022-11-28 23:43] MED LIST changes: -Iopamidol-370 76% 500 ML 1 ML ONE; +Iopamidol-370 76% 500 ML MDV (1 ML CHARGE) ONE
[2022-11-29] MEDS ORDERED: Ondansetron PF 4 MG/2 ML Vial ONE (00:07)
[2022-11-29] MEDS ORDERED: Acetaminophen 500 MG TAB ONE (00:07)
[2022-11-29 00:20] LABS: #Basophils 0.1 thou/uL (0.0-0.2); #Eosinphils 0.1 thou/uL (0.0-0.7); #Lymphocytes 2.3 thou/uL (1.20-3.40); #Monocytes 0.9 thou/uL (0.11-0.59); #Neutrophils 8.7 thou/uL (1.40-6.50); %Basophils 0.7 % (0.0-1.0); %Eosinophils 1.1 % (0.0-10.0); %Lymphocytes 18.8 % (21.0-51.0); %Monocytes 7.6 % (0.0-10.0); %Neutrophils 71.9 % (42.0-75.0); Hemoglobin 12.7 g/dL (12.0-16.0); Mean Corpuscular HGB CONC 32.9 g/dL (32.0-36.0); Mean Corpuscular Hemoglobin 25.7 pg (27.0-31.0); Mean Corpuscular Volume 78.2 fl (78.0-98.0); Mean Platelet Volume 9.6 fL (7.4-10.4); Platelet Count 205 10x3/uL (130-400); RBC Distribution Width 16.3 % (11.5-14.5); Red Blood Cell (RBC) Count 4.93 mill/uL (4.20-5.40)
[2022-11-29 00:27] LABS: Actual Bicarbonate (HCO3v) 21.6 mEq/L (22-28); Analyzer IN Cardio ER; Base Excess -1.6 mEq/L (-2.0 to +3.0); Calcium, Ionized (venous) 1.09 mmol/L (1.16-1.32); Chloride (VBG) 92 mmol/L (98-106); Hematocrit-VBG 39 % (36.0-47.0); Hemoglobin (Hb) 13.4 g/dL (11.7-16.1); Potassium (VBG) 3.15 mmol/L (3.70-5.30); Sodium 121.2 mmol/L (133-146); pH (venous) 7.444 (7.32-7.43)
[2022-11-29 00:38] LABS: ALT (SGPT) 17 U/L (8-55); AST (SGOT) 22 U/L (5-34); Albumin 4.1 g/dL (3.4-4.8); Alkaline Phosphatase 57 U/L (40-110); Anion Gap 16 mmol/L (10-20); BUN (Urea Nitrogen) 16 mg/dL (9.8-20.1); Bilirubin, Total 0.4 mg/dL (0.2-1.2); Calc. Creatinine Clearance 0 mL/min (70-130); Carbon Dioxide 20 mmol/L (23-31); Chloride 92 mmol/L (98-107); Estimated GFR 81; Globulin 2.4 g/dL (2.4-3.5); Glucose 124 mg/dL (80-115); Lipase 5 U/L (8-78); Magnesium 1.6 mg/dL (1.6-2.6); Potassium 3.1 mmol/L (3.5-5.1); Protein, Total 6.5 g/dL (5.8-8.1); Sodium 125 mmol/L (136-145)
[2022-11-29 01:06] LABS: SARS-CoV-2 NAA Rapid Test Not Detected (NotDetected)
[2022-11-29 01:45] LABS: Bacteria/HPF None Seen HPF (None Seen); Bilirubin Negative (Negative); Blood, Urine Negative (Negative); Clarity Turbid (Clear); Glucose, Urine (Dipstick) Normal (Negative); Ketone, Urine Negative (Negative); Leukocyte 250 Leu/uL (Negative); Nitrite Negative (Negative); Protein, Urine (Dipstick) 10 mg/dL (Neg-Trace); RBC/HPF 0-3 HPF (0-3); Specific Gravity, Urine 1.027 (1.002-1.036); Urobilinogen Normal mg/dL (Less than 2); WBC/HPF 21-50 HPF (0-3)
[2022-11-29] MEDS ORDERED: Potassium Chloride 20 MEQ TAB ONE ×2 (01:54→02:00)
[2022-11-29] MEDS: cefTRIAXone\\ROCEPHIN 1 GM in Sodium Chloride 0.9% 100 ML IVPB SCH (05:30)
[2022-11-29] MEDS ORDERED: Ketorolac Tromethamine 30 MG/ML VIAL IVP SCH ×2 (05:30→23:30)
[2022-11-29] MEDS ORDERED: Ketorolac Tromethamine 30 MG/ML VIAL ONE (05:31)
[2022-11-29] MEDS ORDERED: cefTRIAXone (ROCEPHIN) 1 GM VIAL ONE (05:40)
[2022-11-29 06:22] VITALS: BMI 39.3
[2022-11-29] MEDS ORDERED: fentaNYL 50 mcg/mL 1 mL Vial ONE (06:23)
[2022-11-29] MEDS ORDERED: fentaNYL 50 mcg/mL 1 mL Vial SLOW IVP SCH ×2 (06:30→16:00)
[2022-11-29] MEDS ORDERED: Ipratropium/Albuterol 3 ML NEB NEB PRN (07:48)
[2022-11-29] MEDS ORDERED: tiZANidine HCl 4 MG TAB PO PRN (07:48)
[2022-11-29] MEDS ORDERED: Famotidine 20 MG TAB ONE (08:17)
[2022-11-29] MEDS: Gabapentin 300 MG CAP PO SCH ×3 (08:43→20:52)
[2022-11-29] MEDS: Famotidine 20 MG TAB PO SCH ×2 (08:43→20:53)
[2022-11-29] MEDS: Lisinopril/Hydrochlorothiazide 20/25 mg Tablet PO SCH ×2 (08:43→20:54)
[2022-11-29] MEDS ORDERED: Potassium Chloride 20 MEQ in Lactated Ringer's 1,000 ML IV SCH (09:45)
[2022-11-29 10:30] LABS: #Basophils 0.1 thou/uL (0.0-0.2); #Eosinphils 0.1 thou/uL (0.0-0.7); #Lymphocytes 1.9 thou/uL (1.20-3.40); #Monocytes 0.9 thou/uL (0.11-0.59); %Basophils 0.7 % (0.0-1.0); %Eosinophils 0.9 % (0.0-10.0); %Lymphocytes 15.8 % (21.0-51.0); %Monocytes 7.6 % (0.0-10.0); Hemoglobin 12.6 g/dL (12.0-16.0); Mean Corpuscular HGB CONC 33.1 g/dL (32.0-36.0); Mean Corpuscular Hemoglobin 26.1 pg (27.0-31.0); Mean Corpuscular Volume 79.1 fl (78.0-98.0); Mean Platelet Volume 9.1 fL (7.4-10.4); Platelet Count 202 10x3/uL (130-400); RBC Distribution Width 15.9 % (11.5-14.5); Red Blood Cell (RBC) Count 4.82 mill/uL (4.20-5.40); White Blood Cell (WBC) Count 11.9 10x3/uL (4.8-10.8)
[2022-11-29 10:47] LABS: ALT (SGPT) 15 U/L (8-55); AST (SGOT) 24 U/L (5-34); Albumin 4.1 g/dL (3.4-4.8); Alkaline Phosphatase 56 U/L (40-110); Anion Gap 15 mmol/L (10-20); BUN (Urea Nitrogen) 16 mg/dL (9.8-20.1); Bilirubin, Total 0.3 mg/dL (0.2-1.2); Calc. Creatinine Clearance 102 mL/min (70-130); Calcium 8.5 mg/dL (7.8-10.44); Carbon Dioxide 18 mmol/L (23-31); Chloride 97 mmol/L (98-107); Estimated GFR 72; Globulin 2.4 g/dL (2.4-3.5); Glucose 124 mg/dL (80-115); Potassium 3.7 mmol/L (3.5-5.1); Protein, Total 6.5 g/dL (5.8-8.1); Sodium 126 mmol/L (136-145)
[2022-11-29] MEDS ORDERED: HYDROcodone/Acetaminophen 7.5/325 mg Tablet ONE (11:17)
[2022-11-29] MEDS: HYDROcodone/Acetaminophen 7.5/325 mg Tablet PO PRN ×2 (11:18→20:53)
[2022-11-29] MEDS: Methocarbamol 500 MG TAB PO SCH (20:53)
[2022-11-30] MEDS: cefTRIAXone\\ROCEPHIN 1 GM in Sodium Chloride 0.9% 100 ML IVPB SCH (04:18)
[2022-11-30] MEDS: HYDROcodone/Acetaminophen 7.5/325 mg Tablet PO PRN (05:09)
[2022-11-30 05:42] LABS: #Basophils 0.1 thou/uL (0.0-0.2); #Eosinphils 0.2 thou/uL (0.0-0.7); #Lymphocytes 2.4 thou/uL (1.20-3.40); #Monocytes 0.8 thou/uL (0.11-0.59); #Neutrophils 5.4 thou/uL (1.40-6.50); %Basophils 0.6 % (0.0-1.0); %Eosinophils 1.9 % (0.0-10.0); %Lymphocytes 27.6 % (21.0-51.0); Hemoglobin 12.2 g/dL (12.0-16.0); Mean Corpuscular HGB CONC 34.7 g/dL (32.0-36.0); Mean Corpuscular Hemoglobin 27.4 pg (27.0-31.0); Mean Corpuscular Volume 78.8 fl (78.0-98.0); Mean Platelet Volume 9.7 fL (7.4-10.4); Platelet Count 197 10x3/uL (130-400); RBC Distribution Width 16.3 % (11.5-14.5); Red Blood Cell (RBC) Count 4.45 mill/uL (4.20-5.40); White Blood Cell (WBC) Count 8.8 10x3/uL (4.8-10.8)
[2022-11-30 05:44] LABS: Anion Gap 13 mmol/L (10-20); BUN (Urea Nitrogen) 15 mg/dL (9.8-20.1); Calc. Creatinine Clearance 104 mL/min (70-130); Calcium 9.1 mg/dL (7.8-10.44); Carbon Dioxide 21 mmol/L (23-31); Chloride 101 mmol/L (98-107); Estimated GFR 74; Glucose 94 mg/dL (80-115); Potassium 3.5 mmol/L (3.5-5.1); Sodium 131 mmol/L (136-145)
[2022-11-30] MEDS: Gabapentin 300 MG CAP PO SCH ×2 (08:09→15:19)
[2022-11-30] MEDS: Methocarbamol 500 MG TAB PO SCH (08:10)
[2022-11-30] MEDS: Famotidine 20 MG TAB PO SCH (08:10)
[2022-11-30] MEDS: Lisinopril/Hydrochlorothiazide 20/25 mg Tablet PO SCH (08:10)
[2022-11-30] MEDS ORDERED: Ketorolac Tromethamine 30 MG/ML VIAL IVP PRN (12:56)
[2022-11-30] MEDS ORDERED: HYDROcodone/Acetaminophen 7.5/325 mg Tablet PO PRN (13:00)
[2022-11-30 13:08] VITALS: BP 118/72; TEMP 98.1
== END 2022-11-30 15:25 | disposition home health service (06) ==
LOC: ERS 23:43 → ERHOLD 11-29 03:50 → 2SW 11-29 13:16
PROVIDERS: ADMIT Internal Medicine; ATTEND Internal Medicine
DX: S32.2XXA Fracture of coccyx, initial encounter for closed fracture (principal); E87.1 Hypo-osmolality and hyponatremia; N30.00 Acute cystitis without hematuria; I10 Essential (primary) hypertension; E86.0 Dehydration; F17.210 Nicotine dependence, cigarettes, uncomplicated; E87.6 Hypokalemia; E66.9 Obesity, unspecified; Z68.37 Body mass index [BMI] 37.0-37.9, adult; Z86.16 Personal history of COVID-19; Z79.899 Other long term (current) drug therapy; Z88.2 Allergy status to sulfonamides; Z88.5 Allergy status to narcotic agent; Z88.8 Allergy status to other drugs, medicaments and biological substances; Z91.040 Latex allergy status; Z98.1 Arthrodesis status; Z20.822 Contact with and (suspected) exposure to COVID-19; W19.XXXA Unspecified fall, initial encounter
CPT/HCPCS: 0240U; 74177; 80048; 80053 ×2; 82010; 82805; 83605; 83690; 83735; 83930; 83935; 84300; 84484; 85025 ×3; 87077; 87086; 87186; 93005; 96361; 96372 ×2; 96374; 96375; 96376 ×2; 97535; 99285; G0378 ×3; J3010; 36415; 81003; 81015; J0696; J1650; J1885; J2405; J3480; J3490; J7120; Q9967

== ENCOUNTER 2023-04-10 08:10 | Emergency (ER) | payer MEDICARE, OTHER ==
[2023-04-10 08:36] LABS: #Basophils 0.1 thou/uL (0.0-0.2); #Eosinphils 0.4 thou/uL (0.0-0.7); #Monocytes 0.7 thou/uL (0.11-0.59); #Neutrophils 6.7 thou/uL (1.40-6.50); %Basophils 0.8 % (0.0-1.0); %Eosinophils 3.5 % (0.0-10.0); %Lymphocytes 29.3 % (21.0-51.0); %Monocytes 6.4 % (0.0-10.0); %Neutrophils 59.6 % (42.0-75.0); Hematocrit 39.9 % (36.0-47.0); Hemoglobin 12.6 g/dL (12.0-16.0); Mean Corpuscular HGB CONC 31.6 g/dL (32.0-36.0); Mean Corpuscular Hemoglobin 25.6 pg (27.0-31.0); Mean Corpuscular Volume 80.9 fl (78.0-98.0); Mean Platelet Volume 11.2 fL (7.4-10.4); Platelet Count 218 10x3/uL (130-400); RBC Distribution Width 16.4 % (11.5-14.5); Red Blood Cell (RBC) Count 4.93 mill/uL (4.20-5.40); White Blood Cell (WBC) Count 11.3 10x3/uL (4.8-10.8)
[2023-04-10 08:57] LABS: ALT (SGPT) 11 U/L (8-55); AST (SGOT) 13 U/L (5-34); Albumin 4.2 g/dL (3.4-4.8); Alkaline Phosphatase 60 U/L (40-110); Anion Gap 13 mmol/L (10-20); BUN (Urea Nitrogen) 39 mg/dL (9.8-20.1); Bilirubin, Total 0.3 mg/dL (0.2-1.2); Calc. Creatinine Clearance 0 mL/min (70-130); Carbon Dioxide 24 mmol/L (23-31); Chloride 102 mmol/L (98-107); Estimated GFR 38; Globulin 2.6 g/dL (2.4-3.5); Glucose 158 mg/dL (80-115); Potassium 3.8 mmol/L (3.5-5.1); Protein, Total 6.8 g/dL (5.8-8.1); Sodium 135 mmol/L (136-145)
== END 2023-04-10 12:10 | disposition home or self-care (01) ==
LOC: ERS 08:10
DX: S09.90XA Unspecified injury of head, initial encounter (principal); R55 Syncope and collapse; N17.9 Acute kidney failure, unspecified; F17.210 Nicotine dependence, cigarettes, uncomplicated; W18.11XA Fall from or off toilet without subsequent striking against object, initial encounter
CPT/HCPCS: 70450; 71045; 72125; 80053; 84484; 85025; 93005

== ENCOUNTER 2023-04-27 17:00 | Outpatient (CLI) | payer OTHER | END 2023-04-27 17:01 | disposition home or self-care (01) | LOC: SLEEPLAB 17:00 | PROVIDERS: ATTEND Student in an Organized Health Care Education/Training Program | DX: G47.33 Obstructive sleep apnea (adult) (pediatric) (principal); G47.61 Periodic limb movement disorder; E11.9 Type 2 diabetes mellitus without complications; J44.9 Chronic obstructive pulmonary disease, unspecified; E66.9 Obesity, unspecified; I10 Essential (primary) hypertension; I51.89 Other ill-defined heart diseases; R06.83 Snoring | CPT/HCPCS: 95810 ==

== ENCOUNTER 2024-02-04 08:59 | Outpatient (CLI) | payer OTHER | END 2024-02-04 09:00 | disposition home or self-care (01) | LOC: CT 08:59 | PROVIDERS: ATTEND Physician Assistant | DX: Z47.89 Encounter for other orthopedic aftercare (principal); M47.816 Spondylosis without myelopathy or radiculopathy, lumbar region; Z98.1 Arthrodesis status | CPT/HCPCS: 72131 ==

== ENCOUNTER 2024-07-27 13:15 | Outpatient (CLI) | payer OTHER | END 2024-07-27 13:16 | disposition home or self-care (01) | LOC: BICCT 13:15 | PROVIDERS: ATTEND Internal Medicine | DX: Z12.2 Encounter for screening for malignant neoplasm of respiratory organs (principal); U09.9 Post COVID-19 condition, unspecified; F17.210 Nicotine dependence, cigarettes, uncomplicated | CPT/HCPCS: 71271 ==